=== PATIENT | female | born 1960 | race Caucasian/White ===

== ENCOUNTER 2018-06-18 07:00 | Inpatient (IN) | payer OTHER ==
[~2018-06-18] VITALS: Ht 147.3 cm; Wt 78.9 kg
[2018-06-18] MEDS ORDERED: SYNTHROID175 MCG PO (10:05)
[2018-06-18] MEDS ORDERED: ALDACTONE50 MG PO (10:06)
[2018-06-18] MEDS ORDERED: LOTREL 5-20 MG1 CAP PO (10:06)
[2018-06-18] MEDS ORDERED: GLUMETZA500 MG PO (10:06)
[2018-06-18] MEDS ORDERED: ASPIR 8181 MG PO (10:07)
== END 2018-06-27 12:03 | DRG 743 ==
LOC: SURH 06-24 07:00 → O/R 06-24 09:02 → OB/GYN 06-24 09:02
PROVIDERS: ADMIT Obstetrics & Gynecology
PROC: 0UT20ZZ Resection of Bilateral Ovaries, Open Approach (ICD-10-PCS; 2018-06-24)
PROC: 0UT90ZZ Resection of Uterus, Open Approach (ICD-10-PCS; principal; 2018-06-24 08:30)
DX: N80.0 Endometriosis of uterus (principal); N84.0 Polyp of corpus uteri; N95.0 Postmenopausal bleeding; I10 Essential (primary) hypertension; E03.8 Other specified hypothyroidism